=== PATIENT | female | born 1990 | race Caucasian/White ===

== ENCOUNTER 2019-11-06 11:31 | Emergency (ER) | payer MEDICAID ==
[~2019-11-06] VITALS: Ht 157.5 cm; Wt 81.0 kg
[2019-11-06 14:35] LABS: CLARITY URINE CLEAR (CLEAR); COLOR URINE YELLOW (YELLOW); KETONES URINE NEGATIVE (NEGATIVE); LEUKOCYTE ESTERASE URINE TRACE (NEGATIVE); NITRITE URINE NEGATIVE (NEGATIVE); OCCULT BLOOD URINE 3+ (NEGATIVE); PH URINE 5.5 (4.5-8.0); PROTEIN URINE NEGATIVE (NEGATIVE); SPECIFIC GRAVITY URINE 1.019 (1.005-1.030); UROBILINOGEN URINE 0.2 E.U./dL (0.2-1.0)
[2019-11-06 15:17] LABS: BASOPHILS % 0.3 % (0.0-2.0); EOSINOPHILS % 1.9 % (0.0-5.0); HEMATOCRIT. 30.7 % (36.0-48.0); MEAN CORPUSCULAR VOLUME 81.2 fL (81.0-99.0); MEAN PLATELET VOLUME 8.6 fl (7.4-10.4); MONOCYTES % 6.7 % (2.0-8.0); NEUTROPHILS % 59.1 % (40.0-76.0); PLATELET 289 x1000/uL (130-400); RED BLOOD CELL COUNT 3.79 mill/uL (4.2-5.4); RED CELL DISTRIBUTION WIDTH 14.7 % (11.6-14.6)
[2019-11-06 15:21] LABS: CHLORIDE 104 mEq/L (98-107)
[2019-11-06 15:31] LABS: B-HCG QUANTITATIVE 17 mIU/mL (<3)
[2019-11-06 15:37] LABS: INR 0.9; PROTHROMBIN TIME 9.9 sec (9.6-11.0)
[2019-11-06 16:42] VITALS: BP 111/68
== END 2019-11-06 17:10 | disposition home or self-care (01) ==
LOC: ER 11:31
DX: N93.9 Abnormal uterine and vaginal bleeding, unspecified (principal); F12.10 Cannabis abuse, uncomplicated; Z90.49 Acquired absence of other specified parts of digestive tract
CPT/HCPCS: 36415; 76830; 76856; 80053; 81003; 84702; 85025; 99284

== ENCOUNTER 2020-02-09 21:31 | Emergency (ER) | payer MEDICAID ==
[~2020-02-09] VITALS: Ht 160 cm; Wt 82.0 kg
[2020-02-09 21:33] VITALS: BP 109/70
[2020-02-09 21:51] LABS: CLARITY URINE TURBID (CLEAR); COLOR URINE DARK YELLOW (YELLOW); KETONES URINE 1+ (NEGATIVE); LEUKOCYTE ESTERASE URINE 2+ (NEGATIVE); NITRITE URINE NEGATIVE (NEGATIVE); OCCULT BLOOD URINE 3+ (NEGATIVE); PH URINE 5.5 (4.5-8.0); PROTEIN URINE 3+ (NEGATIVE); SPECIFIC GRAVITY URINE 1.033 (1.005-1.030)
== END 2020-02-09 23:35 | disposition home or self-care (01) ==
LOC: ER 21:31
DX: N39.0 Urinary tract infection, site not specified (principal)
CPT/HCPCS: 81003; 81025; 87077; 87186; 99283

== ENCOUNTER 2022-01-31 20:29 | Emergency (ER) | payer MEDICAID, OTHER ==
[~2022-01-31] VITALS: Ht 160 cm; Wt 86.0 kg
[2022-01-31 20:34] VITALS: BP 130/79
[2022-01-31] MEDS ORDERED: IBUPROFEN 600MG TABLET PO STA (21:28)
[2022-01-31] MEDS ORDERED: IMIT25 MT (22:46)
[2022-01-31] MEDS ORDERED: CYCL10TA21 MT (22:46)
== END 2022-01-31 23:14 | disposition home or self-care (01) ==
LOC: ER 20:29
DX: R51.9 Headache, unspecified (principal); R20.2 Paresthesia of skin; F12.10 Cannabis abuse, uncomplicated; Z90.49 Acquired absence of other specified parts of digestive tract
CPT/HCPCS: 99284